=== PATIENT | female | born 1975 | race Caucasian/White ===

== ENCOUNTER → 2018-09-03 | Outpatient (CLI) | payer BC ==
--- NOTE | 2018-09-03 12:23 | CT ---
CT angiogram of the abdomen HISTORY: Splenic artery aneurysm No comparisons Helical acquisition obtained pre and postcontrast through the abdomen with 100 cc Isovue-370 IV. Thre e-dimensional reconstructions performed on an alternate workstation. Lung bases are clear, no pleural pericardial effusion. No pneumoperitoneum, retroperitoneal adenopathy, or ascites. Within the splenic hilum there is a sphe rical mostly peripherally calcified lesion with central low attenuation, lack of enhancement measurin g approximately 3.2 cm. Intrauterine contraceptive device is in place. Fat density lesion associated with the right ovary jenni sures 1 cm and may represent small dermoid. The appendix is normal. Small amount of diverticular root ges associated with the colon The abdominal aorta shows normal caliber and is patent, enhances normally, the celiac axis, superior mesenteric artery, inferior mesenteric artery, bilateral renal arteries are patent. Patient is post cholecystectomy. Liver is unremarkable. Adrenal glands and kidneys are normal. Pancre as is unremarkable. There is no bowel obstruction. Small umbilical hernia contains fat. There is no a scites or retroperitoneal adenopathy. No pneumoperitoneum. 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
== END | disposition home or self-care (01) ==
LOC: RADCTMAIN 10:43
PROVIDERS: ATTEND Thoracic Surgery (Cardiothoracic Vascular Surgery)
DX: I72.8 Aneurysm of other specified arteries (principal)
CPT/HCPCS: 74175; Q9967

== ENCOUNTER → 2019-11-18 | Outpatient (CLI) | payer BC ==
--- NOTE | 2019-11-18 14:12 | CT ---
EXAMINATION TYPE: CT angio abd aorta w/Runoff DATE OF EXAM: 11/18/2019 HISTORY: follow up per patient. CT DLP: 642.7mGycm Automated Exposure Control for Dose Reduction was Utilized. CONTRAST: CTA scan of the abdomen and pelvis with lower extremity runoff is performed without oral but with IV Contrast, patient injected with 125 mL of Isovue 370. Three-D reconstructed images are created on a [employer] workstation and reviewed. COMPARISON: CTA abdomen September 03, 2018 FINDINGS: VASCULAR: Normal celiac artery, SMA, bilateral single renal arteries, and TONYA. Normal common along wi th bilateral internal/external iliac arteries. Normal bilateral common femoral arteries branching int o superficial and deep femoral arteries. Normal superficial femoral arteries bilaterally extending in to popliteal arteries. Normal bifurcation and trifurcation with good three-vessel flow in the midline again good two-vessel flow in the distal leg and ankle. No significant plaque or stenosis. No linear hypodensity to suggest dissection. No aortic or iliac artery aneurysm. LUNG BASES: No significant abnormality is appreciated. LIVER/GB: Liver is redemonstrated diffusely low dense consistent with fatty infiltration. Cholecystec theresa clips are again seen. PANCREAS: No significant abnormality is seen. SPLEEN: Stable size 2.6 cm rim calcified low dense lesion in the splenic hilum axial image 33. No enl argement or new enhancement noted. ADRENALS: No significant abnormality is seen. KIDNEYS: No significant abnormality is seen. BOWEL: Few diverticula in the sigmoid colon. No CT evidence for acute diverticulitis. No suspicious s mall or large bowel dilatation. UTERUS/ADNEXA: Persistent anteverted uterus with central metallic IUD. LYMPH NODES: No greater than 1cm abdominal or pelvic lymph nodes are appreciated. OSSEOUS STRUCTURES: No significant abnormality is seen. EXTREMITIES: No suspicious abnormality. OTHER: Small fat-containing umbilical hernia is redemonstrated. IMPRESSION: Stable 2.6 cm low dense rim calcified central splenic lesion could reflect thrombosed ane urysm or intrasplenic pathology. No additional aneurysm is evident.
== END | disposition home or self-care (01) ==
LOC: RADCTMAIN 13:19
PROVIDERS: ATTEND Thoracic Surgery (Cardiothoracic Vascular Surgery)
DX: I72.8 Aneurysm of other specified arteries (principal)
CPT/HCPCS: 75635; Q9967